=== PATIENT | female | born 1975 | race Two or more races ===

== ENCOUNTER 2017-02-01 09:17 | Day surgery (SDC) | payer OTHER ==
[2017-01-29 14:54] VITALS: BMI 29.2
[2017-02-01 09:37] LABS: BASOPHIL 0.9 % (0-2.0); EOSINOPHIL 2.6 % (0-4.5); MCH 28.8 pg (25.7-33.7); MCHC 33.2 g/dl (32.0-36.0); MEAN CELL VOLUME 86.6 fl (80-96); MEAN PLT VOLUME 8.4 fl (7.5-11.1); NEUTROPHILS 57.9 % (42.8-82.8); PLATELET COUNT 265 K/MM3 (134-434); RDW 14.1 % (11.6-15.6); WHITE BLOOD COUNT 8.2 K/mm3 (4.0-10.0)
[2017-02-01] MEDS ORDERED: MIDAZOLAM HCL 2 MG/2 ML SINGLE DOSE VIAL ONE ×2 (10:53)
[2017-02-01] MEDS ORDERED: SUCCINYLCHOLINE CHLORIDE 200 MG/10 ML VIAL ONE (11:06)
[2017-02-01] MEDS ORDERED: PROPOFOL 20 ML ONE ×2 (11:06)
[2017-02-01] MEDS ORDERED: LIDOCAINE HCL/PF 2% SDV 5ML VIAL ONE (11:06)
[2017-02-01] MEDS ORDERED: KETOROLAC TROMETHAMINE 30 MG/1 ML VIAL ONE (11:14)
[2017-02-01] MEDS ORDERED: ceFAZolin SODIUM 1 GM VIAL IVPB ONE (11:19)
--- NOTE | 2017-02-01 11:52 | HP ---
Past Medical History - Primary Care Physician PCP:: Jamey Velasquez - Admission Chief Complaint: 41yo P2 with incomplete Ab, admitted for D&C. History of Present Illness: LMP 10/23/2016 with incomplete Ab. The gestational sac visualized on US. 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: No: Alzheimer's, CVA, Dementia, Migraine, Multiple Sclerosis, Peripheral Neuropathy, Parkinson's, Seizure, Syncope, TIA, Vertigo, Other Cardiovascular: No: AFIB, Aneurysm, Aortic Insufficiency, Aortic Stenosis, CAD, CHF, Deep Vein Thrombosis, HTN, Hyperlipdemia, OK, Mitral Insufficiency, Mitral Stenosis, Murmur, Pulmonary Hypertension, Other Pulmonary: No: Asthma, Bronchitis, Cancer, COPD, O2 Dependent, Pneumonia, Previously Intubated, Pulmonary Embolus, Pulmonary Fibrosis, Sleep Apnea, Other Gastrointestinal: No: Ascites, Cancer, Constipation, Crohn's Disease, Diverticulitis, Diverticulosis, Esophageal Varices, Gastritis, GERD, GI Bleed, Hemorrhoids, Hiatal Hernia, Inflamatory Bowel Disease, Irritable Bowel Disease, Pancreatitis, Peptic Ulcer Disease, Ulcerative Colitis, Other Hepatobiliary: No: Cirrhosis, Cholelithiasis, Cholecystitis, Choledocholithiasis , Hepatitis A, Hepatitis B, Hepatitis C, Other Renal/: No: Renal Failure, Renal Inusuff, BPH, Cancer, Hematuria, Hemodialysis , Neurogenic Bladder, Renal Calculi, UTI, Other ...Para: 2 (C/S x 2) Heme/Onc: No: Anemia, B12 Deficiency, Bleeding Disorder, Cancer, Current Chemotherapy, Current Radiation Therapy, Hemochromatosis, Hypercoaguable State, Myeloproliferative Synd, Sickle Cell Disease, Sickle Cell Trait, Thrombocytopenia, Other Infectious Disease: No: AIDS, C-Diff, Herpes Zoster, HIV, MRSA, STD's, Tuberculosis, VREF, Other Psych: No: Addictions, Anxiety, Bipolar, Depression, Panic, Psychosis, Schizophrenia, Other Musculoskeletal: No: Bursitis, Chronic low back pain, Hemiparesis, Hemiplegia, Osteoarthritis, Paraplegia, Other Rheumatology: No: Fibromyalgia, Gout, Lupus, Rheumatoid Arthritis, Sarcoidosis, Vasculitis, Other ENT: No: Allergic Rhinitis, Sinusitis, Other Endocrine: No: Faisal's Disease, [place]'s Disease, Diabetes Insipidus, Diabetes Mellitus, Hyperparathyroidism, Hyperthyroidism, Hypothyroidism, Osteopenia, SIADH, Other Dermatology: No: Basal Cell, Cellulitis, Eczema, Melanoma, Psoriasis, Squamous Cell, Other - Past Surgical History Past Surgical History: Yes: (x 2) Hx Myomectomy: No Hx Transabdominal Cerclage: No Additional Surgical History: Left knee surgery x 2 (arthroscopy), left shoulder surgery - Smoking History Smoking history: Never smoked - Alcohol/Substance Use Hx Alcohol Use: No History of Substance Use: reports: None - Social History Usual Living Arrangement: Yes: With Spouse, With Child ADL: Independent History of Recent Travel: No Home Medications - Allergies Allergies/Adverse Reactions: Allergies Allergy/AdvReac Type Severity Reaction Status Date / Time aspirin Allergy Intermediate Vomiting Verified 02/01/17 09:54 - Home Medications Home Medications: Ambulatory Orders NK [No Known Home Medication] 01/29/17 Family Disease History - Family Disease History Family History: Denies Review of Systems - Review of Systems Constitutional: reports: No Symptoms Eyes: reports: No Symptoms HENT: reports: No Symptoms Neck: reports: No Symptoms Cardiovascular: reports: No Symptoms Respiratory: reports: No Symptoms Gastrointestinal: reports: No Symptoms Genitourinary: reports: No Symptoms Breasts: reports: No Symptoms Reported Musculoskeletal: reports: No Symptoms Integumentary: reports: No Symptoms Neurological: reports: No Symptoms Endocrine: reports: No Symptoms Hematology/Lymphatic: reports: No Symptoms Psychiatric: reports: No Symptoms Pain Intensity: 0 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: Vital Signs Temperature 98.2 F 02/01/17 09:54 Pulse Rate 57 L 02/01/17 09:54 Respiratory Rate 18 02/01/17 09:54 Blood Pressure 115/47 02/01/17 09:54 O2 Sat by Pulse Oximetry (%) 100 02/01/17 09:54 Constitutional: Yes: Well Nourished, No Distress, Calm Eyes: Yes: WNL, Conjunctiva Clear HENT: Yes: WNL, Atraumatic, Normocephalic Neck: Yes: WNL, Supple, Trachea Midline Cardiovascular: Yes: WNL, Regular Rate and Rhythm Respiratory: Yes: WNL, Regular, CTA Bilaterally Gastrointestinal: Yes: WNL, Normal Bowel Sounds, Soft ...Rectal Exam: Yes: WNL Renal/: Yes: WNL Pelvis: Yes: WNL External Genitalia: Yes: Normal Vaginal Exam: Yes: Normal Cervix: Yes: Normal Uterus: Yes: Normal Adnexa: Normal: Left, Right Breast(s): Yes: WNL Musculoskeletal: Yes: WNL Extremities: Yes: WNL Edema: No Integumentary: Yes: WNL Neurological: Yes: WNL, Alert, Oriented ...Motor Strength: WNL Psychiatric: Yes: WNL, Alert, Oriented Labs: CBC, BMP 02/01/17 09:25 Imaging - Results Ultrasound: Report Reviewed, Image Reviewed Problem List - Problem (1) Incomplete Code(s): O03.4 - INCOMPLETE SPONTANEOUS WITHOUT COMPLICATION (2) Status post dilatation and curettage Code(s): Z98.890 - OTHER SPECIFIED POSTPROCEDURAL STATES Assessment/Plan 41 yo P2 with incomplete ab admitted for D&C. Risks, benefits, alternatives of surgery were discussed in detail. The risks of infection, bleeding, scarring, amenorrhea, infertility, perforation, pain, need for additional surgery to treat complications, etc. were explained.
[2017-02-01] MEDS ORDERED: ONDANSETRON 4 MG/2 ML VIAL IVPUSH PRN (11:53)
[2017-02-01] MEDS ORDERED: oxyCODONE HCL 5 MG TABLET PO PRN (11:53)
[2017-02-01] MEDS ORDERED: PROMETHAZINE HCL 25 MG/1 ML VIAL IVPUSH PRN (11:53)
[2017-02-01] MEDS ORDERED: IBUPROFEN 600 MG TABLET (FP) PO PRN (11:55)
[2017-02-01] MEDS ORDERED: ACETAMINOPHEN 325 MG TABLET (FP) PO PRN (11:55)
[2017-02-01] MEDS ORDERED: LACTATED RINGERS SOLUTION 1,000 ML IV SCH (12:00)
--- NOTE | 2017-02-01 12:00 | OP ---
Operative Note - Note: Operative Date: 02/01/17 Pre-Operative Diagnosis: Incomplete Ab Operation: Suction, D&C Findings: POC on suction Post-Operative Diagnosis: Same as Pre-op Surgeon: Jamey Velasquez Anesthesiologist/TECHNOLOGY MANAGER: Adrián Garrido Anesthesia: General Specimens Removed: POC Estimated Blood Loss (mls): 30 Blood Volume Replaced (mls): 0 Fluid Volume Replaced (mls): 600 Operative Report Dictated: Yes
[2017-02-01] MEDS ORDERED: ACETAMINOPHEN 1000 MG/100 ML VIAL (NON FORMULARY) IVPB ONE (12:45)
[2017-02-01 13:02] VITALS: TEMP 98.5
[2017-02-01 13:24] VITALS: PULSE 50
[2017-02-01 13:51] VITALS: BP 101/59
--- NOTE | 2017-02-01 19:23 | OP ---
DATE OF OPERATION: 02/01/2017 PREOPERATIVE DIAGNOSIS: Incomplete . POSTOPERATIVE DIAGNOSIS: Incomplete . PROCEDURE: Suction dilation and curettage. SURGEON: Paz Domingo M.D. CARTON MAKER: None. ANESTHESIOLOGIST: Adrián Garrido M.D. ANESTHESIA: General. COMPLICATIONS: None. INTRAVENOUS FLUIDS: 600 mL crystalloid. ESTIMATED BLOOD LOSS: 30 mL. PATHOLOGY: Products of conception. FINDINGS: Examination under anesthesia revealed a small anteverted uterus and cervical os fingertip open, minimum vaginal bleeding noted. Products of conception were observed on suction curettage, no retained products of conception were observed at the end of the procedure. Good hemostasis is noted at the end of the procedure. PROCEDURE: The patient was met preoperatively. Risks, benefits, and alternatives of surgery were discussed in detail. All questions were answered. The patient was brought to the OR with the IV running. She was placed on the surgical table in the supine position. The anesthesia was achieved without difficulty. The patient was then placed in a dorsal lithotomy position using adjustable Darin stirrups. The patient was prepped and draped in the usual sterile fashion. A sterile speculum was introduced inside the vagina with good visualization of the cervix. The cervix was grasped with a single-tooth tenaculum. No dilation of the cervical os was necessary. An 8-mm suction curet was introduced into the uterine cavity gently. A suction curettage was then performed without complications. Once the suction curettage was completed, a sharp curet was used to assure that there was no retained products of conception left outside the uterus. Once curettage was completed, all of the instruments were removed from the patient. Good hemostasis was assured. Sponge, lap, and instrument counts were correct. The patient was returned to supine position. The patient was transferred to recovery room in stable condition and awake. PAZ DOMINGO M.D. JOCELYNN/[id number]
--- NOTE | 2017-02-02 13:00 | PATH ---
Surgical Pathology Report Patient Name: RONAL JIN Med. Rec. #: [id number] /Age/Gender: 1975 (Age: 41) / F Account: [id number] Location: [facility] SURGICAL Taken: 02/01/2017 Received: 02/01/2017 Reported: 02/02/2017 Physicians: Jamey Velasquez M.D. Specimen(s) Received PRODUCTS OF CONCEPTION Clinical History Missed Final Diagnosis UTERINE CONTENTS, EVACUATION: CHORIONIC VILLI CONSISTENT WITH PRODUCTS OF CONCEPTION, AND PORTIONS OF DECIDUA. Electronically Signed Lalito Delgado M.D. Gross Description Received in formalin labeled "products of conception," is a 6.8 x 6.5 x 1.0 cm aggregate of rubin red soft tissue fragments. Villous tissue is identified. No definite somatic tissues identified. A circulation representative portion is submitted in one cassette. /02/01/201702/01/2017
== END 2017-02-01 13:52 | disposition home or self-care (01) ==
LOC: JASU-SURG 09:17
PROVIDERS: ATTEND Obstetrics & Gynecology
PROC: 10D17ZZ Extraction of Products of Conception, Retained, Via Natural or Artificial Opening (ICD-10-PCS; principal; 2017-02-01 11:00)
DX: O03.4 Incomplete spontaneous abortion without complication (principal)
CPT/HCPCS: 36415; 85025; 86850; 86900; 86901; 88305-TC; 94760

== ENCOUNTER 2017-10-22 12:20 | Day surgery (SDC) | payer OTHER ==
[2017-10-21 14:13] VITALS: BMI 28.1
[2017-10-22] MEDS ORDERED: oxyCODONE HCL 5 MG TABLET PO PRN (13:58)
[2017-10-22] MEDS ORDERED: ONDANSETRON 4 MG/2 ML VIAL IVPUSH PRN (13:58)
[2017-10-22] MEDS ORDERED: LACTATED RINGERS SOLUTION 1,000 ML IV SCH (14:00)
[2017-10-22] MEDS ORDERED: ceFAZolin SODIUM 1 GM VIAL IVPB ONE (14:21)
[2017-10-22 15:33] VITALS: TEMP 98.1
--- NOTE | 2017-10-22 16:40 | HP ---
Past Medical History - Primary Care Physician PCP:: Jamey Velasquez - Admission Chief Complaint: 42yo p2 admitted for D&C due to plateued serum BHCG. Pt is asymptomatic History of Present Illness: Pt was evaluated for ameorrhea and found to have a serum BHCG of 23 that was followed and did not increase or decrease appropriately. The pt had a single episode of bleeding 2 days ago. She is asymptomatic. 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: Alzheimer's, CVA, Dementia, Migraine, Multiple Sclerosis, Peripheral Neuropathy, Parkinson's, Seizure, Syncope, TIA, Vertigo, Other Cardiovascular: Yes: Other (Hyperlipidemia) Pulmonary: No: Asthma, Bronchitis, Cancer, COPD, O2 Dependent, Pneumonia, Previously Intubated, Pulmonary Embolus, Pulmonary Fibrosis, Sleep Apnea, Other Gastrointestinal: No: Ascites, Cancer, Constipation, Crohn's Disease, Diverticulitis, Diverticulosis, Esophageal Varices, Gastritis, GERD, GI Bleed, Hemorrhoids, Hiatal Hernia, Inflamatory Bowel Disease, Irritable Bowel Disease, Pancreatitis, Peptic Ulcer Disease, Ulcerative Colitis, Other Hepatobiliary: No: Cirrhosis, Cholelithiasis, Cholecystitis, Choledocholithiasis , Hepatitis A, Hepatitis B, Hepatitis C, Other Renal/: No: Renal Failure, Renal Inusuff, BPH, Cancer, Hematuria, Hemodialysis , Neurogenic Bladder, Renal Calculi, UTI, Other ...Para: 2 ...Spon : 1 Heme/Onc: No: Anemia, B12 Deficiency, Bleeding Disorder, Cancer, Current Chemotherapy, Current Radiation Therapy, Hemochromatosis, Hypercoaguable State, Myeloproliferative Synd, Sickle Cell Disease, Sickle Cell Trait, Thrombocytopenia, Other Infectious Disease: No: AIDS, C-Diff, Herpes Zoster, HIV, MRSA, STD's, Tuberculosis, VREF, Other Psych: No: Addictions, Anxiety, Bipolar, Depression, Panic, Psychosis, Schizophrenia, Other Musculoskeletal: No: Bursitis, Chronic low back pain, Hemiparesis, Hemiplegia, Osteoarthritis, Paraplegia, Other Rheumatology: No: Fibromyalgia, Gout, Lupus, Rheumatoid Arthritis, Sarcoidosis, Vasculitis, Other ENT: No: Allergic Rhinitis, Sinusitis, Other Endocrine: No: [place]'s Disease, [place]'s Disease, Diabetes Insipidus, Diabetes Mellitus, Hyperparathyroidism, Hyperthyroidism, Hypothyroidism, Osteopenia, SIADH, Other Dermatology: No: Basal Cell, Cellulitis, Eczema, Melanoma, Psoriasis, Squamous Cell, Other - Past Surgical History Past Surgical History: Yes: Arthrosocopy, (x 2) Hx Myomectomy: No Hx Transabdominal Cerclage: No Additional Surgical History: D&C x 1, left shoulder and knee surgery - Smoking History Smoking history: Never smoked Have you smoked in the past 12 months: No - Alcohol/Substance Use Hx Alcohol Use: No History of Substance Use: reports: None - Social History ADL: Independent History of Recent Travel: No Home Medications - Allergies Allergies/Adverse Reactions: Allergies Allergy/AdvReac Type Severity Reaction Status Date / Time aspirin Allergy Intermediate Vomiting Verified 10/22/17 12:36 - Home Medications Home Medications: Ambulatory Orders NK [No Known Home Medication] 10/21/17 Family Disease History - Family Disease History Family History: Unremarkable Review of Systems - Review of Systems Constitutional: reports: No Symptoms Eyes: reports: No Symptoms HENT: reports: No Symptoms Neck: reports: No Symptoms Cardiovascular: reports: No Symptoms Respiratory: reports: No Symptoms Gastrointestinal: reports: No Symptoms Genitourinary: reports: No Symptoms Breasts: reports: No Symptoms Reported Musculoskeletal: reports: No Symptoms Integumentary: reports: No Symptoms Neurological: reports: No Symptoms Endocrine: reports: No Symptoms Hematology/Lymphatic: reports: No Symptoms Psychiatric: reports: No Symptoms Pain Intensity: 0 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 Vital Signs: Vital Signs Temperature 98.1 F 10/22/17 15:30 Pulse Rate 58 L 10/22/17 15:45 Respiratory Rate 20 10/22/17 15:45 Blood Pressure 119/63 10/22/17 15:45 O2 Sat by Pulse Oximetry (%) 99 10/22/17 15:30 Constitutional: Yes: No Distress, Calm, Obese Eyes: Yes: WNL, Conjunctiva Clear HENT: Yes: WNL, Atraumatic, Normocephalic Neck: Yes: WNL, Supple, Trachea Midline Cardiovascular: Yes: WNL, Regular Rate and Rhythm Respiratory: Yes: WNL, Regular, CTA Bilaterally Gastrointestinal: Yes: WNL, Normal Bowel Sounds, Soft ...Rectal Exam: Yes: Deferred Renal/: Yes: WNL Pelvis: Yes: WNL External Genitalia: Yes: Normal Internal Exam Deferred: No Vaginal Exam: Yes: Normal Cervix: Yes: Normal Uterus: Yes: Normal Adnexa: Normal: Left, Right Musculoskeletal: Yes: WNL Extremities: Yes: WNL Edema: No Integumentary: Yes: WNL Neurological: Yes: WNL, Alert, Oriented ...Motor Strength: WNL Psychiatric: Yes: WNL, Alert, Oriented Imaging - Results Ultrasound: Report Reviewed Assessment/Plan 42yo P2 with possible incomplete Ab. Ectopic cannot be ruled out. The pt is asymptomatic. Plan for D&C and [place] [facility] had a long discussion about the risks, benefits, and alternatives of surgery. I explained the risks of infection, bleeding, scarring, amenorrhea, Asherman's syndrome, infertility, perforation, need for additional surgery to treat any complications, etc. She requested to proceed with surgery.
--- NOTE | 2017-10-22 16:47 | OP ---
Operative Note - Note: Operative Date: 10/22/17 Pre-Operative Diagnosis: Incomplete Ab Operation: Suction, D&C Findings: Small AV uterus, scant tissue. Unclear if POC present (known low BHCG levels) Post-Operative Diagnosis: Same as Pre-op Surgeon: Jamey Velasquez Anesthesiologist/WALLPAPER HANGER HELPER: Madhu Silva Anesthesia: General Specimens Removed: Endometrial curettings Estimated Blood Loss (mls): 5 Blood Volume Replaced (mls): 0 Fluid Volume Replaced (mls): 500 Operative Report Dictated: Yes
[2017-10-22 18:17] VITALS: BP 103/58; PULSE 63
--- NOTE | 2017-10-23 09:07 | OP ---
DATE OF OPERATION: 10/22/2017 PREOPERATIVE DIAGNOSIS: Incomplete . POSTOPERATIVE DIAGNOSIS: Incomplete . PROCEDURE: Suction dilatation and curettage. SURGEON: Jamey Velasquez MD ANESTHESIOLOGIST: Madhu Silva MD ANESTHESIA: General. COMPLICATIONS: None. ESTIMATED BLOOD LOSS: 5 mL INTRAVENOUS FLUIDS: 500 mL PATHOLOGY: Endometrial curettings. FINDINGS: A small anteverted uterus was noted during examination under anesthesia. No pelvic or adnexal masses. Very scant tissue was obtained on suction curettage as well as sharp curettage but patient has known very low beta hCG levels with expected small amount of tissue. Plan to follow up. DESCRIPTION OF PROCEDURE: The patient was met preoperatively. Risks, benefits, and alternatives of surgery were discussed. All questions were answered. The patient was specifically cautioned about the risks of Asherman syndrome, amenorrhea, infertility, infection, perforation, and need for additional surgery to repair any complications. The patient verbalized understanding and agreed to proceed with surgery. The patient was then brought to the OR with the IV running. She was placed on the surgical table in the supine position. The general anesthesia was achieved without difficulty. The patient was placed in a dorsal lithotomy position using adjustable Darin stirrups. She was examined under anesthesia. Small anteverted uterus was noted. No pelvic or adnexal masses were noted. The patient was prepped and draped in the usual sterile fashion. A timeout procedure was conducted as per standard protocol. A sterile speculum was introduced inside the vagina with good visualization of the cervix. The anterior cervical lip was grasped with a single-tooth tenaculum. The cervix was dilated to accommodate size 21 Lara dilator. A christin sharp curettage was then performed. The tissue was sent to Pathology. A suction curettage was then performed, and tissue was also sent to Pathology. Once the procedure was completed, good hemostasis was noted. All of the instruments were removed from the patient. Sponge, lap, instrument counts were correct. The patient was returned to supine position. She was transferred to recovery room awake and in stable condition. Larry [id number]
--- NOTE | 2017-10-27 09:57 | PATH ---
Surgical Pathology Report Patient Name: RONAL JIN [facility]. Rec. #: [id number] /Age/Gender: 1975 (Age: 42) / F Account: [id number] Location: [facility] SURGICAL Taken: 10/22/2017 Received: 10/25/2017 Reported: 10/27/2017 Physicians: Jamey Velasquez M.D. Specimen(s) Received A: ENDOMETRIAL CURETTINGS B: PRODUCTS OF CONCEPTION Clinical History Incomplete Final Diagnosis A. ENDOMETRIAL CURETTINGS, DILATATION AND CURETTAGE: FRAGMENTS OF PROLIFERATIVE ENDOMETRIUM AND BENIGN ENDOCERVICAL TISSUE. B. UTERUS, "PRODUCTS OF CONCEPTION", DILATATION AND CURETTAGE: FRAGMENTS OF PROLIFERATIVE ENDOMETRIUM AND BENIGN ENDOCERVICAL TISSUE. NO CHORIONIC VILLI/TROPHOBLASTIC TISSUE IDENTIFIED. Comment: Findings discussed with Dr. Velasquez. Electronically Signed Linn Ritter M.D. Gross Description A. Received in formalin labeled "endometrial curettings," is a 2.5 x 2.5 x 0.3 cm aggregate of rubin-brown soft tissue fragments admixed with mucus. The formalin is filtered and the specimen is entirely submitted in one cassette. B. Received in formalin labeled "products of conception," is a 1.0 x 1.0 x 0.1 cm aggregate of rubin-brown soft tissue fragments. No definite villous tissue or somatic tissue is identified. The formalin is filtered and the specimen is entirely submitted in one cassette. DL/10/25/2017 saudi10/25/2017
== END 2017-10-22 17:55 | disposition home or self-care (01) ==
LOC: JASU-SURG 12:20
PROVIDERS: ATTEND Obstetrics & Gynecology
PROC: 10D17ZZ Extraction of Products of Conception, Retained, Via Natural or Artificial Opening (ICD-10-PCS; principal; 2017-10-22 14:00)
DX: O03.4 Incomplete spontaneous abortion without complication (principal)
CPT/HCPCS: 94760